=== PATIENT | female | born 1970 | race African-American/Black ===

== ENCOUNTER 2022-12-25 12:57 | Emergency (ER) | payer BC, SELFPAY ==
[2022-12-25 14:18] LABS: #Basophils 0.1 10x3/uL (0.0-0.2); #Eosinphils 0.1 10x3/uL (0.0-0.5); #Monocytes 0.5 10x3/uL (0.0-1.1); #Neutrophils 4.5 10x3/uL (1.5-8.4); %Basophils 0.8 % (0.0-2.0); %Eosinophils 1.5 % (0.0-6.0); %Lymphocytes 30.4 % (18.0-47.0); %Monocytes 7.1 % (0.0-10.0); %Neutrophils 59.9 % (40.0-75.0); Hematocrit 39.3 % (34.9-44.5); Hemoglobin 12.8 g/dL (12.0-15.5); Mean Corpuscular HGB CONC 32.6 g/dL (32.0-36.0); Mean Corpuscular Hemoglobin 27.9 pg (27.0-33.0); Mean Corpuscular Volume 85.8 fl (81.6-98.3); Mean Platelet Volume 10.6 fl (7.4-10.4); Platelet Count 360 10x3/uL (150-450); RBC Distribution Width 14.7 % (11.5-14.5); Red Blood Cell (RBC) Count 4.58 10x6/uL (3.90-5.03); White Blood Cell (WBC) Count 7.5 10x3/uL (3.5-10.5)
[2022-12-25 14:31] LABS: ALT (SGPT) 13 U/L (8-55); AST (SGOT) 18 U/L (5-34); Albumin 4.4 g/dL (3.5-5.0); Alkaline Phosphatase 126 U/L (40-110); Anion Gap 17 mmol/L (10-20); BUN (Urea Nitrogen) 13 mg/dL (7.0-18.7); Bilirubin, Total 0.5 mg/dL (0.2-1.2); Calc. Creatinine Clearance 0 mL/min (70-130); Calcium 9.4 mg/dL (7.8-10.44); Carbon Dioxide 20 mmol/L (22-29); Chloride 103 mmol/L (98-107); Estimated GFR 80; Globulin 4.2 g/dL (2.4-3.5); Glucose 100 mg/dL (70-105); Protein, Total 8.6 g/dL (6.0-8.3); Sodium 136 mmol/L (136-145)
[2022-12-25 14:38] LABS: Troponin I Less than 0.010 ng/mL (< 0.028)
[2022-12-25 18:01] LABS: Troponin I Less than 0.010 ng/mL (< 0.028)
== END 2022-12-25 18:40 | disposition home or self-care (01) ==
LOC: CSHERS 12:57
DX: R07.9 Chest pain, unspecified (principal); I10 Essential (primary) hypertension; E03.9 Hypothyroidism, unspecified
CPT/HCPCS: 36415; 71045; 80053; 84484; 85025; 93005